=== PATIENT | male | born 1995 ===

== ENCOUNTER 2018-10-16 12:59 | Emergency (ER) | payer OTHER ==
[~2018-10-16] VITALS: Ht 177.8 cm; Wt 68.0 kg
[~2018-10-16 12:59] MED LIST: AMOX500 PO; CODACEE120 PO; HYDACE5 PO; SULTRIDS PO
[2018-10-16] MEDS ORDERED: KETO10 PO (13:28)
[2018-10-16] MEDS ORDERED: Cyclobenzaprine5 MG PO (13:28)
== END 2018-10-16 13:40 | disposition home or self-care (01) ==
LOC: ER 12:59
DX: S16.1XXA Strain of muscle, fascia and tendon at neck level, initial encounter (principal); M75.102 Unspecified rotator cuff tear or rupture of left shoulder, not specified as traumatic; V49.9XXA Car occupant (driver) (passenger) injured in unspecified traffic accident, initial encounter; F17.200 Nicotine dependence, unspecified, uncomplicated
CPT/HCPCS: 99283

== ENCOUNTER 2018-11-23 05:43 | Emergency (ER) | payer OTHER ==
[~2018-11-23] VITALS: Ht 177.8 cm; Wt 68.0 kg
[~2018-11-23 05:43] MED LIST changes: +Cyclobenzaprine5 MG PO; +KETO10 PO
== END 2018-11-23 07:02 | disposition home or self-care (01) ==
LOC: ER 05:43
DX: S51.812A Laceration without foreign body of left forearm, initial encounter (principal); X58.XXXA Exposure to other specified factors, initial encounter
CPT/HCPCS: 12002; 99283-25

== ENCOUNTER 2019-01-13 12:12 | Emergency (ER) | payer MEDICAID ==
[~2019-01-13] VITALS: Ht 180.3 cm; Wt 69.4 kg
[2019-01-13] MEDS ORDERED: Robaxin-750750 MG PO (13:45)
[2019-01-13] MEDS ORDERED: IBUP800 PO (13:45)
== END 2019-01-13 13:57 | disposition home or self-care (01) ==
LOC: ER 12:12
DX: S51.812A Laceration without foreign body of left forearm, initial encounter (principal); S29.012A Strain of muscle and tendon of back wall of thorax, initial encounter; F17.210 Nicotine dependence, cigarettes, uncomplicated; W17.89XA Other fall from one level to another, initial encounter
CPT/HCPCS: 99282

== ENCOUNTER 2019-01-17 19:08 | Emergency (ER) | payer MEDICAID ==
[~2019-01-17] VITALS: Ht 170.2 cm; Wt 70.8 kg
[~2019-01-17 19:08] MED LIST changes: +IBUP800 PO; +Robaxin-750750 MG PO
== END 2019-01-17 21:11 | disposition home or self-care (01) ==
LOC: ER 19:08
DX: S51.812A Laceration without foreign body of left forearm, initial encounter (principal); W01.198A Fall on same level from slipping, tripping and stumbling with subsequent striking against other object, initial encounter; F17.200 Nicotine dependence, unspecified, uncomplicated
CPT/HCPCS: 12002; 99282-25

== ENCOUNTER 2019-01-28 19:24 | Emergency (ER) | payer OTHER ==
[~2019-01-28] VITALS: Ht 180.3 cm; Wt 70.8 kg
== END 2019-01-28 19:48 | disposition home or self-care (01) ==
LOC: ER 19:24
DX: S51.812D Laceration without foreign body of left forearm, subsequent encounter (principal); F17.200 Nicotine dependence, unspecified, uncomplicated

== ENCOUNTER 2019-04-15 10:30 | Observation (INO) | payer OTHER ==
[~2019-04-15] VITALS: Ht 167.6 cm; Wt 65.8 kg
[2019-04-15 11:30] LABS: Calcium, Ionized (POC) 1.03 mmol/L (1.10-1.46); Chloride (POC) 108 mmol/L (98-108); Creatinine (POC) 1.4 mg/dL (0.8-1.3); Glucose (ISTAT POC) 115 mg/dL (70-99); Hemoglobin (POC) 13.9 g/dL (13.5-17.5); Potassium (POC) 3.6 mmol/L (3.5-5.5); Sodium (POC) 144 mmol/L (135-148); Total CO2 (POC) 22 mmol/L (21-32)
[2019-04-15 13:05] LABS: BASOPHILS ABSOLUTE AUTO 0.05 K/mm3 (0.00-0.23); BASOPHILS PERCENT AUTO 1 % (0-2); EOSINOPHILS ABSOLUTE AUTO 0.06 K/mm3 (0.00-0.68); EOSINOPHILS PERCENT AUTO 1 % (0-6); Hematocrit 40.6 % (37.0-53.0); Hemoglobin 13.8 g/dL (13.5-17.5); IMMATURE GRAN ABSOLUTE AUTO 0.02 K/mm3 (0.00-0.10); IMMATURE GRAN PERCENT AUTO 0 % (0-1); LYMPHOCYTES ABSOLUTE AUTO 1.77 K/mm3 (0.84-5.20); LYMPHOCYTES PERCENT AUTO 21 % (21-46); MONOCYTES ABSOLUTE AUTO 0.53 K/mm3 (0.16-1.47); MONOCYTES PERCENT AUTO 6 % (4-13); Mean Corpuscular HGB 31.5 pg (26.0-34.0); Mean Corpuscular Volume 93 fL (80-100); NEUTROPHILS ABSOLUTE AUTO 6.08 K/mm3 (1.96-9.15); NEUTROPHILS PERCENT AUTO 72 % (41-73); RDW Coefficient Variation 11.7 % (11.7-14.2); RDW Standard Deviation 39.7 fL (35.1-46.3); Red Blood Cell Count 4.38 M/mm3 (4.30-5.90); White Blood Cell Count 8.51 K/mm3 (4.00-11.30)
[2019-04-15 13:09] LABS: Source, Urine Clean Catch
[2019-04-15 13:21] LABS: Bilirubin, Urine Neg (Neg); Blood, Urine Neg (Neg); Glucose Qualitative, Urine Neg (Neg); Ketones, Urine Neg (Neg); Leukocyte Esterase, Urine Neg (Neg); Nitrite, Urine Neg (Neg); Protein, Urine Neg (Neg); Specific Gravity, Urine 1.005 (1.003-1.022); Urobilinogen, Urine NORM (Normal)
[2019-04-15 13:27] LABS: Alanine Aminotransfer (ALT/SGP 24 U/L (12-78); Albumin, Blood 3.8 g/dL (3.4-5.0); Albumin/Globulin Ratio 1.1 (0.8-1.8); Alk Phos 88 U/L (50-136); Anion Gap 6 mmol/L (6-16); Aspartate Aminotrans (AST/SGOT 25 U/L (12-37); Bilirubin, Total 0.5 mg/dL (0.1-1.0); Blood Urea Nitrogen 11 mg/dL (8-24); Bun/Creatinine Ratio 12.2 (12.0-20.0); CO2, Blood 27 mmol/L (21-32); Chloride, Blood 110 mmol/L (98-108); Creatinine, Blood 0.91 mg/dL (0.60-1.20); Ethanol (Alcohol), Blood, Med 235 mg/dL; Globulin, Blood 3.4 g/dL (2.2-4.0); Glomerular Filtration Rate >60 (60-); Glucose, Blood 109 mg/dL (70-99); Sodium, Blood 143 mmol/L (136-145); Total Protein, Blood 7.2 g/dL (6.4-8.2)
[2019-04-15 13:29] LABS: Acetaminophen, Random <2.0 ug/mL (10.0-30.0)
[2019-04-15 13:31] LABS: Appearance, Urine Clear (Clear); Color, Urine Yellow (P-Yellow)
[2019-04-15 14:04] LABS: Mean Platelet Volume 10.3 fL (9.1-12.4); Platelet Count 227 K/mm3 (150-400)
[2019-04-15 14:21] LABS: U Amphetamine Screen Not Detected; U Barbituate Screen Not Detected; U Benzodiazapine Screen Not Detected; U Buprenorphine Screen Not Detected; U Cannabinoids Screen Not Detected; U Cocaine Screen DETECTED; U Methadone Screen Not Detected; U Methamphetamine Screen Not Detected; U Opiates Screen Not Detected; U Oxycodone Screen Not Detected; U Phencyclidine Screen Not Detected; U Propoxyphene Screen Not Detected
[2019-04-16 07:07] LABS: HBSAG SCREEN Negative (Negative); HEP A AB, IGM Negative (Negative); HEP B CORE AB, IGM Negative (Negative); HEP C VIRUS AB <0.1 (0.0-0.9)
[2019-04-17 16:06] LABS: FINAL INTERPRETATION Negative (.); HIV 1 AB Negative (Negative); HIV 2 AB Negative (Negative)
== END 2019-04-16 10:01 | disposition home or self-care (01) ==
LOC: ER 10:30 → EOR 10:31
PROVIDERS: ADMIT Emergency Medicine
PROC: 0HQCXZZ Repair Left Upper Arm Skin, External Approach (ICD-10-PCS; principal; 2019-04-15)
DX: S41.112A Laceration without foreign body of left upper arm, initial encounter (principal); F10.129 Alcohol abuse with intoxication, unspecified; F17.210 Nicotine dependence, cigarettes, uncomplicated; F29 Unspecified psychosis not due to a substance or known physiological condition; X78.9XXA Intentional self-harm by unspecified sharp object, initial encounter; Y90.7 Blood alcohol level of 200-239 mg/100 ml
CPT/HCPCS: 12002; 73206; 80047; 80053; 80074; 81003; 85014; 85025; 86701; 86702; 86703; 96374-59; 96375-59; 99285-25; G0378; G0480; J0690; J1200; J1630; J2060; J7030; Q3014; Q9967

== ENCOUNTER 2020-10-08 02:43 | Observation (INO) | payer OTHER ==
[~2020-10-08] VITALS: Ht 175.3 cm; Wt 81.7 kg
[2020-10-08 03:15] LABS: BASOPHILS ABSOLUTE AUTO 0.06 K/mm3 (0.00-0.23); BASOPHILS PERCENT AUTO 1 % (0-2); EOSINOPHILS ABSOLUTE AUTO 0.46 K/mm3 (0.00-0.68); EOSINOPHILS PERCENT AUTO 5 % (0-6); Hematocrit 41.9 % (37.0-53.0); Hemoglobin 14.5 g/dL (13.5-17.5); IMMATURE GRAN ABSOLUTE AUTO 0.02 K/mm3 (0.00-0.10); IMMATURE GRAN PERCENT AUTO 0 % (0-1); LYMPHOCYTES ABSOLUTE AUTO 2.97 K/mm3 (0.84-5.20); LYMPHOCYTES PERCENT AUTO 33 % (21-46); MONOCYTES ABSOLUTE AUTO 0.62 K/mm3 (0.16-1.47); MONOCYTES PERCENT AUTO 7 % (4-13); Mean Corpuscular HGB 31.8 pg (26.0-34.0); Mean Corpuscular HGB Conc 34.6 g/dL (31.5-36.5); Mean Corpuscular Volume 92 fL (80-100); Mean Platelet Volume 9.4 fL (9.1-12.4); NEUTROPHILS PERCENT AUTO 54 % (41-73); Platelet Count 272 K/mm3 (150-400); RDW Coefficient Variation 12.5 % (11.7-14.2); RDW Standard Deviation 42.3 fL (35.1-46.3); Red Blood Cell Count 4.56 M/mm3 (4.30-5.90); White Blood Cell Count 8.93 K/mm3 (4.00-11.30)
[2020-10-08 03:30] LABS: Anion Gap 5 mmol/L (6-16); Blood Urea Nitrogen 11 mg/dL (8-24); Bun/Creatinine Ratio 11.8 (12.0-20.0); CO2, Blood 27 mmol/L (21-32); Calcium, Blood 8.4 mg/dL (8.5-10.1); Chloride, Blood 108 mmol/L (98-108); Creatinine, Blood 0.93 mg/dL (0.60-1.20); Ethanol (Alcohol), Blood, Med 300 mg/dL; Glomerular Filtration Rate >60 (60-); Glucose, Blood 110 mg/dL (70-99); Potassium, Blood 3.4 mmol/L (3.5-5.5); Sodium, Blood 140 mmol/L (136-145)
== END 2020-10-08 15:46 | disposition home or self-care (01) ==
LOC: ER 02:43 → EOR 02:50
PROVIDERS: ADMIT Emergency Medicine
DX: F10.129 Alcohol abuse with intoxication, unspecified (principal); S51.812A Laceration without foreign body of left forearm, initial encounter; T79.7XXA Traumatic subcutaneous emphysema, initial encounter; F17.210 Nicotine dependence, cigarettes, uncomplicated; Y90.8 Blood alcohol level of 240 mg/100 ml or more; W27.1XXA Contact with garden tool, initial encounter
CPT/HCPCS: 12002; 36415; 73090; 80048; 85025; 90471; 90714; 96374-59; 96375-59; 99285-25; G0378; G0480; J1630; J2060; J7030